=== PATIENT | female | born 1970 | race Caucasian/White ===

== ENCOUNTER 2016-06-30 10:29 | Emergency (ER) | payer MEDICAID ==
[~2016-06-30] VITALS: Wt 55.0 kg
[2016-06-30] MEDS ORDERED: PEN500 PO (11:40)
[2016-06-30] MEDS ORDERED: IBUP-1542 PO (11:40)
--- NOTE | 2016-06-30 15:04 | ERD ---
ER Documentation Chief Complaint Date/Time DATE: 06/30/16 TIME: 15:03 Chief Complaint RIGHT SIDE LOWER FACE SWELLING FOR 2 DAYS. NO FEVERS. NO DRAINAGE HPI Patient is a 46-year-old female with hepatitis C who presents with right-sided facial swelling. She has had swelling for the past few days. It started with dental pain and then the face started swelling. She has recently been in [facility]. She has had no treatment as of yet. ROS All systems reviewed and are negative except as per history of present illness. Medications Home Meds Active Scripts Ibuprofen* (Motrin*) 600 Mg Tab, 600 MG PO Q6H Y for PAIN AND OR ELEVATED TEMP, #30 TAB Prov:LEXIE RESENDEZ MD 06/30/16 Penicillin V Potassium* (Penicillin V K*) 500 Mg Tab, 500 MG PO QID for 7 Days, TAB Prov:LEXIE RESENDEZ MD 06/30/16 PMhx/Soc Medical and Surgical Hx: pt denies Medical Hx, pt denies Surgical Hx Hx Alcohol Use: Yes Hx Substance Use: No Hx Tobacco Use: No Smoking Status: Never smoker FmHx Family History: No diabetes Physical Exam Vitals Vital Signs Date Time Temp Pulse Resp B/P Pulse Ox O2 Delivery O2 Flow Rate FiO2 06/30/16 10:31 97.4 94 20 104/81 100 Physical Exam Const: No acute distress Head: Atraumatic Eyes: Normal Conjunctiva ENT: Poor dentition diffusely Neck: Full range of motion..~ No meningismus. Resp: Clear to auscultation bilaterally Cardio: Regular rate and rhythm, no murmurs Abd: Soft, non tender, non distended. Normal bowel sounds Skin: Facial swelling over the right mandible, no fluctuance Back: No midline or flank tenderness Ext: No cyanosis, or edema Neur: Awake and alert Psych: Normal Mood and Affect Procedures/MDM Smoking Cessation Therapy: Pt. was lectured for greater than 3 minutes on the health risks of continued smoking and the benefits of cessation. Patient is a 46-year-old female with a smoking and heroin history who presents with right-sided facial swelling. She has poor dentition and I believe this is likely dental abscess with facial swelling. She will be given a prescription for penicillin VK 4 times a day for 1 week. The patient will need to follow-up closely with the [facility] dentist and will likely need tooth extraction. The patient can return for any worsening symptoms. At this point there is no abscess that would need incision and drainage in the face. She can return for any worsening symptoms. I do not believe she requires further workup or admission to the hospital at this time. Departure Diagnosis: Primary Impression: Facial swelling Additional Impression: Dental abscess Condition: Fair Patient Instructions: Dental Abscess W/ Facial Cellulitis Referrals: [facility] ([facility] walk in clinic) Additional Instructions: SPECIALIST: YOU HAVE A MEDICAL CONDITION WHICH REQUIRES YOU TO SEE A SPECIALIST WITHIN THE NEXT 1-2 DAYS. PLEASE FOLLOW UP WITH YOUR PRIMARY PHYSICIAN FOR REFFERAL.IF YOU DO NOT HAVE A PRIMARY CARE PHYSICIAN AND/OR YOU CAN NOT AFFORD TO SEE A PHYSICIAN THE FOLLOWING RESOURCES HAVE BEEN SUPPLIED TO YOU. IT IS YOUR RESPONSIBILITY TO BE SEEN BY THE SPECIALIST LEXIE RESENDEZ MD Jun 30, 2016 15:04
== END 2016-06-30 11:55 | disposition home or self-care (01) ==
LOC: FTE 10:29
DX: R60.0 Localized edema (principal); K04.7 Periapical abscess without sinus
CPT/HCPCS: 99283

== ENCOUNTER 2016-12-30 18:01 | Emergency (ER) | payer MEDICAID ==
[~2016-12-30] VITALS: Ht 154.9 cm; Wt 51.0 kg
[~2016-12-30 18:01] MED LIST: IBUP-1542 PO; PEN500 PO
[2016-12-30 18:51] VITALS: Ht 154.9 cm; Wt 51.0 kg
== END 2016-12-30 21:50 | disposition left against medical advice (07) ==
LOC: E/R 18:01
DX: Z53.21 Procedure and treatment not carried out due to patient leaving prior to being seen by health care provider (principal)

== ENCOUNTER 2016-12-30 22:11 | Inpatient (IN) | payer MEDICAID ==
[~2016-12-30] VITALS: Ht 154.9 cm; Wt 51.0 kg
[2016-12-30] MEDS ORDERED: SOD CHLORIDE 0.9% 1,000 ML IV STA (22:57)
[2016-12-30] MEDS ORDERED: PIPER-TAZO 3.375 GM IV (PMX) 100 ML IVPB STA (22:57)
[2016-12-30] MEDS ORDERED: VANCOMYCIN 1 GM (PMX) 250 ML IVPB SCH (23:00)
[2016-12-31] MEDS ORDERED: CEFTRIAXONE 2 GM INJ IM ONE
[2016-12-31] MEDS ORDERED: LIDOCAINE 1% (MPF) 5 ML VIAL SC ONE
--- NOTE | 2016-12-31 00:22 | RADRPT ---
PROCEDURE: XR Chest. CLINICAL INDICATION: Chest pain. Possible foreign body TECHNIQUE: Portable AP view of the chest was obtained. COMPARISON: None. FINDINGS: The cardiomediastinal silhouette is within normal limits. The lungs are clear. There is no evidenc e for pleural effusion, pneumothorax or pulmonary vascular congestion. The osseous structures are i ntact with no evidence for acute abnormality. No radiopaque foreign bodies evident. RPTAT:HJJR IMPRESSION: No evidence for acute intrathoracic pathology, no radiopaque foreign body is visible. Physician Tushar Date Time Electronically viewed and signed by Physician Tushar on 12/31/2016 00:21 JR/
--- NOTE | 2016-12-31 00:24 | RADRPT ---
PROCEDURE: Left humerus x-ray CLINICAL INDICATION: Pain. Concern for foreign body TECHNIQUE: AP and lateral views of the humerus were obtained. COMPARISON: None FINDINGS: There is normal mineralization. No acute fracture or dislocation is seen. There is diffuse soft tissue swelling. The visualized joints are normal. Lateral projection demonstrates a thin linear metallic type density projecting in the region of the anterior forearm the finding approximately 11 mm in length and unable to exclude a superficial radio paque foreign body. RPTAT:HJJR IMPRESSION: 1. Soft tissue swelling without acute osseous abnormality of the left humerus. 2. On the lateral view only is a thin linear superficial metallic needle - like finding unable to ex clude a foreign body of 11 mm projecting in the anterior soft tissues of the left forearm. Physician Tushar Date Time Electronically viewed and signed by Physician Tushar on 12/31/2016 00:24 JR/
[2016-12-31 01:30] LABS: WHITE BLOOD COUNT 10.4 10^3/ul (4.8-10.8)
[2016-12-31 01:31] LABS: BASOPHILS % 0.4 % (0.0-2.0); EOSINOPHILS # 0.1 10^3/ul (0.0-0.5); EOSINOPHILS % 0.7 % (0.0-7.0); HEMATOCRIT 40.3 % (37.0-47.0); HEMOGLOBIN 12.8 g/dl (12.0-16.0); LYMPHOCYTES # 2.9 10^3/ul (0.8-2.9); LYMPHOCYTES % 27.7 % (15.0-51.0); MEAN CORPUSCULAR HEMOGLOBIN 24.8 pg (29.0-33.0); MEAN CORPUSCULAR HGB CONC 31.8 g/dl (32.0-37.0); MEAN CORPUSCULAR VOLUME 78.1 fl (82.0-101.0); MEAN PLATELET VOLUME 10.6 fl (7.4-10.4); MONOCYTE # 0.8 10^3/ul (0.3-0.9); MONOCYTES % 8.1 % (0.0-11.0); NEUTROPHILS % 62.9 % (39.0-77.0); PLATELET COUNT 292 10^3/UL (140-415); RED BLOOD COUNT 5.16 10^6/ul (4.20-5.40); RED CELL DISTRIBUTION WIDTH 15.2 % (11.5-14.5)
[2016-12-31 01:52] LABS: INR 0.99; PROTIME 13.1 Sec (12.2-14.2)
[2016-12-31 01:54] LABS: ALBUMIN 3.6 g/dl (3.3-4.9); ALBUMIN/GLOBULIN RATIO 0.85; BILIRUBIN,INDIRECT 0.2 mg/dl (0-1.1); BILIRUBIN,TOTAL 0.2 mg/dl (0.2-1.3); CALCIUM 8.7 mg/dl (8.4-10.2); CREATININE 0.8 mg/dl (0.44-1.00); TOTAL PROTEIN 7.8 g/dl (6.1-8.1)
[2016-12-31 01:55] VITALS: TEMP 98.2
--- NOTE | 2016-12-31 02:25 | ERA ---
ER Documentation Chief Complaint Date/Time DATE: 12/31/16 TIME: 02:16 Chief Complaint left upper arm abscess R/T drug needle use HPI 46-year-old woman with a history of methamphetamine and heroin abuse brought in by EMS for recent left upper extremity swelling. She admits to swelling to the left arm 2-3 days and admits to recent heroin injection into the left upper extremity. Patient denies paresis or paresthesias, no chest pain or shortness of breath, no fevers or chills, no vomiting or diarrhea. ROS All systems reviewed and are negative except as per history of present illness. Medications Home Meds Active Scripts Ibuprofen* (Motrin*) 600 Mg Tab, 600 MG PO Q6H Y for PAIN AND OR ELEVATED TEMP, #30 TAB Prov:LEXIE RESENDEZ MD 06/30/16 Penicillin V Potassium* (Penicillin V K*) 500 Mg Tab, 500 MG PO QID for 7 Days, TAB Prov:LEXIE RESENDEZ MD 06/30/16 Allergies Allergies: Coded Allergies: No Known Allergy (Unverified , 12/30/16) PMhx/Soc Methamphetamine and heroin abuse. History of Surgery: Yes (appendectomy) Anesthesia Reaction: No Hx Neurological Disorder: Yes (seizure) Hx Respiratory Disorders: No Hx Cardiac Disorders: No Hx Psychiatric Problems: Yes (heroin abuse) Hx Miscellaneous Medical Probl: No Hx Alcohol Use: No (denies) Hx Substance Use: Yes (heroine last used 12/30/16 morning) Hx Tobacco Use: Yes Smoking Status: Current every day smoker FmHx Family History: No diabetes Physical Exam Vitals Vital Signs Date Time Temp Pulse Resp B/P Pulse Ox O2 Delivery O2 Flow Rate FiO2 12/31/16 01:55 98.2 89 16 97/54 98 Room Air 12/30/16 22:19 98.9 110 20 110/70 98 Physical Exam GENERAL: Well-developed, well-nourished, well-hydrated, in no apparent distress , looks nontoxic in appearance, afebrile HEENT: Moist mucous membranes, pink conjunctiva, no cervical spine tenderness or step-off deformities, no goiter, no jaundice or icterus, extraocular movements intact without pain. No submandibular induration, and no pharyngeal erythema NEURO: Alert and oriented 3, cranial nerves II through XII intact bilaterally, pupils equal round reactive to light, no focal deficits or facial asymmetry, sensation intact distally Strength 5/5 in upper and lower extremities bilaterally CARDIAC: Regular rate and rhythm, no murmurs rubs or gallops LUNGS: Clear bilaterally no wheezing crackles or stridor ABDOMEN: Soft nontender, no guarding, no rigidity, no rebound, no psoas sign no obturator sign. Normoactive bowel sounds SKIN: Large zone of tender erythema and induration to the left upper extremity with superficial pustules consistent with chronic skin injection secondary to heroin abuse. No purulent discharge noted EXTREMITIES: No clubbing cyanosis or edema, calves are bilaterally symmetrical, no Homans sign, no popliteal cord sign. Distal pulses equal and bilateral PSYCH: Normal affect without agitation or irritability Result Diagram: 12/31/16 0010 12/31/16 0010 Results 24 hrs Laboratory Tests Test 12/31/16 00:10 White Blood Count 10.410^3/ul Red Blood Count 5.1610^6/ul Hemoglobin 12.8g/dl Hematocrit 40.3% Mean Corpuscular Volume 78.1fl Mean Corpuscular Hemoglobin 24.8pg Mean Corpuscular Hemoglobin Concent 31.8g/dl Red Cell Distribution Width 15.2% Platelet Count 42863^3/UL Mean Platelet Volume 10.6fl Neutrophils % 62.9% Lymphocytes % 27.7% Monocytes % 8.1% Eosinophils % 0.7% Basophils % 0.4% Nucleated Red Blood Cells % 0.0/100WBC Neutrophils # (Manual) 710^3/ul Lymphocytes # 2.910^3/ul Monocytes # 0.810^3/ul Eosinophils # 0.110^3/ul Basophils # 0.010^3/ul Nucleated Red Blood Cells # 0.010^3/ul Prothrombin Time 13.1Sec Prothrombin Time Ratio 1.0 INR International Normalized Ratio 0.99 Sodium Level 136mmol/L Potassium Level 4.0mmol/L Chloride Level 95mmol/L Carbon Dioxide Level 26mmol/L Anion Gap 19 Blood Urea Nitrogen 13mg/dl Creatinine 0.80mg/dl Glucose Level 86mg/dl Calcium Level 8.7mg/dl Total Bilirubin 0.2mg/dl Direct Bilirubin 0.00mg/dl Indirect Bilirubin 0.2mg/dl Aspartate Amino Transf (AST/SGOT) 53IU/L Alanine Aminotransferase (ALT/SGPT) 60IU/L Alkaline Phosphatase 107IU/L Total Protein 7.8g/dl Albumin 3.6g/dl Globulin 4.20g/dl Albumin/Globulin Ratio 0.85 Lipase 18U/L Current Medications Medications (Trade) Dose Ordered Sig/Holly Route PRN Reason Start Time Stop Time Status Last Admin Dose Admin Sodium Chloride 1,000 ml @ 1,000 mls/hr Q1H STAT IV 12/30/16 22:57 12/30/16 23:56 DC 12/30/16 23:24 Piperacillin Sod/ Tazobactam Sod 100 ml @ 200 mls/hr ONCE STAT IVPB 12/30/16 22:57 12/30/16 23:26 DC 12/30/16 23:24 Vancomycin HCl (Vancocin) 250 ml @ 125 mls/hr ONCE IVPB 12/30/16 23:00 12/31/16 00:59 DC 12/30/16 23:25 Ceftriaxone Sodium (Rocephin) 2 gm ONCE ONCE IM 12/31/16 00:00 12/31/16 00:08 DC Lidocaine (Xylocaine 1% (Mpf)) 5 ml ONCE ONCE SC 12/31/16 00:00 12/31/16 00:08 DC Procedures/MDM IV line was established patient was placed on quality assurance monitor rhythm strip revealed a sinus rhythm at about 80 bpm with upright P and T waves. Patient was afebrile. IV line was established I administered Pipracil and tazobactam 3.375 g IV and vancomycin 1 g IV. 1 L normal saline IV 1. Three-view x-ray of the left humerus performed, read by me there is no acute fracture or dislocation, positive soft tissue air and a needle in the left upper lateral arm consistent with retained foreign body. Chest X-ray 1V Interpreted by me: Soft Tissue: No acute abnormalities Bones: No acute abnormalities Mediastinum/Cardiac Silhouette/Lungs: No acute abnormalities CBC and electrolytes are normal, liver function tests are normal. Departure Diagnosis: Primary Impression: Left arm cellulitis Additional Impressions: Abscess Retained foreign body Heroin abuse Condition: MELY Castro MD Dec 31, 2016 02:24
[2016-12-31 02:45] LABS: ADD UMIC YES; UR ASCORBIC ACID NEGATIVE (NEGATIVE); UR BILIRUBIN (Dip) NEGATIVE (NEGATIVE); UR BLOOD (Dip) 2+ mg/dL (NEGATIVE); UR CLARITY SLIGHTLY CLOUDY (CLEAR); UR COLOR AMBER (YELLOW); UR GLUCOSE (Dip) 3+ mg/dL (NEGATIVE); UR KETONES (Dip) NEGATIVE (NEGATIVE); UR LEUKOCYTE ESTERASE (Dip) NEGATIVE Leu/ul (NEGATIVE); UR MUCUS MANY /HPF (NONE SEEN); UR NITRITE (Dip) POSITIVE (NEGATIVE); UR RBC 5 /HPF (0-5); UR SPECIFIC GRAVITY (Dip) 1.027 (1.003-1.030); UR SQUAMOUS EPITHELIAL CELL FEW /HPF (FEW); UR TOTAL PROTEIN (Dip) 1+ mg/dl (NEGATIVE); UR UROBILINOGEN (Dip) NEGATIVE (NEGATIVE)
[2016-12-31] MEDS ORDERED: morphine 2 MG INJ IV PRN (04:00)
[2016-12-31] MEDS ORDERED: LORAZEPAM 2 MG INJ IV PRN ×2 (04:00)
[2016-12-31] MEDS ORDERED: SOD CHLORIDE 0.9% 500 ML IV ONE (04:00)
[2016-12-31] MEDS ORDERED: ONDANSETRON 4 MG INJ IV PRN (04:00)
[2016-12-31] MEDS ORDERED: ACETAMINOPHEN 325 MG TAB PO PRN (04:00)
[2016-12-31] MEDS ORDERED: NACL 0.9% 3 ML SYG IV SCH (04:00)
[2016-12-31] MEDS ORDERED: VANCOMYCIN IV PER PHARMACY XX SCH (04:00)
[2016-12-31 04:33] VITALS: Ht 154.9 cm; Wt 51.0 kg
--- NOTE | 2016-12-31 06:44 | HP ---
Date/Time of Note Date/Time of Note DATE: 12/31/16 TIME: 06:26 Assessment/Plan VTE Prophylaxis VTE Prophylaxis Intervention: heparin Lines/Catheters IV [facility]from [facility] Saline Lock Assessment/Plan Assessment/Plan 1. Left upper arm abscess, secondary to IV drug use -will order CT scan for evaluation of an abscess and further evaluation of the metallic needle-like finding that was noted on the x-ray. -Surgical consult will be placed. -Broad-spectrum antibiotic and pain management -We will attempt to send culture from one of the vesicles or from the surrounding area -ID consult 2. Foreign body in the left arm -See #1 3. IV drug abuse -Case management/social work to provide information about rehab/detox HPI/ROS Admit Date/Time Admit Date/Time Dec 31, 2016 at 01:16 Hx of Present Illness This is a 46-year-old female with a history of IV heroin abuse and seizure related to detox who presented to the emergency department complaining of left upper arm swelling and pain. She said that she has been injecting heroin in that area and the starting 2 days ago she started noticing swelling and pain which has been progressively getting worse. During my questioning, patient was very sleepy requiring frequent awakening. Last heroin use was yesterday. She denied any other complaints. I believe I have noted some swelling and a fluid- filled vesicle in her right forearm but patient was not willing for examination because she wanted to sleep at that time. When she presented to the ER, she was tachycardic with a heart rate of 110 otherwise vitals were stable. Labs shows slightly elevated AST of 53 otherwise CBC and CMP are within acceptable range. Left humerus x-ray shows soft tissue swelling without acute osseous abnormality of the left humerus and on the lateral view only is a thin linear superficial metallic needle - like finding unable to exclude a foreign body of 11 mm projecting in the anterior soft tissues of the left forearm. X-ray with no acute findings. . PMH/Family/Social Social History Smoking Status: Current some day smoker Exam/Review of Systems Vital Signs Vitals Vital Signs Date Time Temp Pulse Resp B/P Pulse Ox O2 Delivery O2 Flow Rate FiO2 12/31/16 01:55 98.2 89 16 97/54 98 Room Air Intake and Output 12/30/16 12/30/16 12/31/16 15:00 23:00 07:00 Intake Total 1350 ml Balance 1350 ml Exam Constitutional: other (Sleepy but arousable. No acute distress) Head: atraumatic, normocephalic Eyes: EOMI, PERRL Respiratory: clear to auscultation, normal air movement Cardiovascular: nl pulses, regular rate and rhythm Gastrointestinal: non-tender, soft Extremities: other (Left upper arm induration with overlying to moderate sized fluid-filled vesicles. There appears to be some swelling with a vesicle in the right forearm but patient was not willing for examination because she wanted to sleep at that time) Labs Result Diagram: 12/31/16 0010 12/31/16 0010 Medications Medications Current Medications Ondansetron HCl (Zofran Inj) 4 mg Q6H PRN IV NAUSEA AND/OR VOMITING; Start at 04:00 Acetaminophen (Tylenol Tab) 650 mg Q6H PRN PO PAIN LEVEL 1-3 OR FEVER; Start at 04:00 Morphine Sulfate (morphine) 2 mg Q4H PRN IV SEVERE PAIN LEVEL 7-10; Start 12/31 at 04:00 Heparin Sodium (Porcine) 5000 unit 5,000 unit Q12 SC ; Start 12/31/16 at 09:00 Cefepime HCl (Maxipime 1gm/50 ml (Pmx)) 50 ml @ 100 mls/hr Q12 IVPB ; Start at 09:00 Lorazepam (Ativan) 2 mg Q1H PRN IV SEIZURE; Start 12/31/16 at 04:00 Lorazepam 1 mg 1 mg Q6H PRN IV ANXIETY; Start 12/31/16 at 04:00 Vancomycin HCl (Vancocin) 100 ml @ 100 mls/hr Q12H IVPB ; Start 12/31/16 at 11: 00 LAURO DIANA MD Dec 31, 2016 06:40
[2016-12-31 08:01] VITALS: BP 124/57; RESP 18
[2016-12-31] MEDS: HEPARIN 5,000 UNIT/0.5 ML VIAL SC SCH ×2 (08:35→21:25)
[2016-12-31] MEDS: CEFEPIME 1GM/50 ML (PMX) 50 ML IVPB SCH ×2 (08:35→21:24)
[2016-12-31] MEDS ORDERED: VANCOMYCIN 500MG/NS (PMX) 100 ML IVPB SCH (11:00)
--- NOTE | 2016-12-31 12:21 | CONS ---
Date/Time of Note Date/Time of Note DATE: 12/31/16 TIME: 12:20 Assessment/Plan Assessment/Plan Additional Assessment/Plan [facility] INPATIENT CONSULTATION NOTE DATE OF SERVICE: 12/31/2016 PLACE OF SERVICE: [facility], second floor [facility] ASSESSMENT AND PLAN: A very-pleasant 46-year-old lady with comorbidity of significant intravenous drug abuse, presenting with left upper arm cellulitis with question of possible abscess. There is also retained needle near the head of the humerus. We need further workup in the form of either ultrasound or CT scan (or both) of the left upper arm which is currently pending to see if there are any indications for surgical intervention. Certainly, the patient needs to stay in house and get treated with intravenous antimicrobials until her arm swelling has improved. I see no evidence for necrotizing fasciitis, but will further assess with above imaging. Patient is also fairly lethargic (? Recent Ativan), but her vital signs and her laboratory values are fairly normal and for this reason I do not suspect systemic sepsis or shock. I tried to explain the above to the patient but I do not believe that she was comprehending the conversation or perhaps she was just not interested in communicating. Patient did not have any questions. Also communicated with the team. With above assessment, I've recommended the followin. Continue with scheduled images of the left upper extremity. We may need further imaging pending the results. 2. Marked the area of erythema with a marker 3. Continue broad-spectrum intravenous antimicrobials 4. Keep in-house 5. Labs in a.m. 6. I agree with and recommend ID consultation Thank you very much for having me involved in the care of this very pleasant patient and wonderful family. If you have any questions, please feel free to contact me at [phone]. Nature of presenting problem: Moderate to high severity Please note that, given the multiple number of diagnoses or management options, the moderate amount and/or complexity of data needed to be reviewed, and moderate to high risk of complications and/or morbidity or mortality, this qualifies as moderate complexity type of decision-making. Disclaimer: Inadvertent spelling and grammatical errors are likely due to EHR/ dictation software use and do not reflect on the quality of delivered patient care. Also, please note that the electronic time recorded on this node does not necessarily reflect the actual time of the visit. Updated clinical summary: A very-pleasant 46-year-old lady with comorbidity of significant intravenous drug abuse, admitted through the emergency department at [facility] on 12/31/2016 with left upper arm cellulitis with question of possible abscess. There was also retained needle near the head of the humerus. Comorbidities: 1. Intravenous drug use (methamphetamine and heroin) 2. Appendectomy 3. 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 Every day smoker 5. Foreign body in the left arm near head of humerus CONSULTATION REQUESTED BY: Lupillo Flaherty MD HISTORY OF PRESENT ILLNESS: The patient is a very pleasant 46-year-old lady with above-mentioned comorbidities whom we were kindly asked to consult regarding management of left upper extremity swelling. Patient was brought into the emergency department by EMS with 2 day history of worsening left upper arm swelling and pain. She did report injecting heroin in the area and noticed the swelling approximately 2 days ago. Patient was not very communicative during my discussions with her and for this reason it was somewhat difficult to get detailed history. But the patient did not seem to complain of inability to move her hand or having numbness in her fingers. She did not tell me if she had had prior episodes of the same issue in the past. Her workup in the emergency department showed a heart rate of 110 and fairly unremarkable laboratory values. X-ray of the left humerus showed soft tissue swelling without acute osseous abnormality of the left humerus and on the lateral view, there was a thin linear superficial metallic needlelike object which was thought to be likely a broken needle. CT scan was pending at the time of my discussions with the patient. No family present during my discussions with the patient. ALLERGIES: NO KNOWN DRUG ALLERGIES MEDICATIONS Documented in the electronic records and reviewed by me. Please see the electronic records for details, as well as details for inpatient medications which were also reviewed by me. SOCIAL HISTORY: + Tob;? ETOH; + IVDU (methamphetamines and heroin) FAMILY HISTORY: There are no significant medical, surgical or oncologic issues in the family as reported by the patient or reflected in the chart. REVIEW OF SYSTEMS: Other than mentioned above, there were no other pertinent positives or pertinent negatives in an otherwise complete 14 point review of systems. PHYSICAL EXAMINATION GENERAL: The patient appears to be a very pleasant lady of descent lying in bed, appearing stated age, and otherwise in no acute distress. BMI: 21.2. Patient was resting comfortably and answered with 1 word sentences and not to all questions. Somewhat disengaged from the interviewer. VITAL SIGNS: AVSS (please also see auto important data if available as well as the electronic records) HEENT: Normocephalic and atraumatic. Extraocular muscles and hearing are grossly intact bilaterally and symmetrically. Sclerae are nonicteric. Oral cavity is clear; oral mucosa appear to be pink and moist. Dentition: fair. NECK: Supple. There is no lymphadenopathy or JVD. There is no submental, submandibular or supraclavicular lymphadenopathy. CHEST: Rises symmetrically with each breath; patient is breathing comfortably. There are no audible wheezes, rales or rhonchi on the gross exam. HEART: Pulse is regular and palpable on the right wrist. Capillary refill is normal. Carotid pulses are palpable bilaterally and symmetrically in the neck. EXTREMITIES: Left upper arm showed swelling of the arm with at least 3 or 4 raised skin blisters which were clustered in the middle of the arm area laterally and associated with mild erythema of the skin but no discharge from the areas. The arm was minimally tender to palpation. Compartments did not feel tight. Patient was able to move her left hand and arm without noticeable difficulty. There did not seem to be any significant numbness in the left hand. Pulses were palpable on the radial artery. Lower extremities contain no pitting edema around the ankles bilaterally and symmetrically. ABDOMEN: Abdomen is soft, nontender and nondistended. No evidence of ascites, organomegaly, caput medusae, engorged subcutaneous veins, or other abnormalities. There are no peritoneal signs or guarding. SKIN: Appears to be pink and feels warm to touch. NEUROLOGIC: Sleeping with her eyes closed and responding intermittently to voice command. Did not seem engaged with the interviewer and appear to follow simple commands appropriately. LABORATORY DATA: See below IMAGING: See electronic chart. Please note that I've personally reviewed all pertinent available images and I agree in general with their overall reported findings. Consultation Date/Type/Reason Admit Date/Time Dec 31, 2016 at 01:16 Social History Smoking Status: Current some day smoker Exam/Review of Systems Vital Signs Vitals Vital Signs Date Time Temp Pulse Resp B/P Pulse Ox O2 Delivery O2 Flow Rate FiO2 12/31/16 08:01 98.9 89 18 124/57 97 8/20/17 01:55 Room Air Intake and Output 12/30/16 12/30/16 12/31/16 15:00 23:00 07:00 Intake Total 2350 ml Balance 2350 ml Results Result Diagram: 12/31/16 0010 12/31/16 0010 Results 24 hrs Laboratory Tests Test 12/30/16 23:15 12/31/16 00:10 Urine Color NATHANIEL Urine Clarity SLIGHTLY CLOUDY A Urine pH 5.0 Urine Specific [place] 1.027 Urine Ketones NEGATIVE Urine Nitrite POSITIVE A Urine Bilirubin NEGATIVE Urine Urobilinogen NEGATIVE Urine Leukocyte Esterase NEGATIVE Urine Microscopic RBC 5 Urine Microscopic WBC 5 Urine Squamous Epithelial Cells FEW Urine Calcium Oxalate Crystals MANY A Urine Mucus MANY A Urine Hemoglobin 2+ H Urine Glucose 3+ H Urine Total Protein 1+ H White Blood Count 10.4 Red Blood Count 5.16 Hemoglobin 12.8 Hematocrit 40.3 Mean Corpuscular Volume 78.1 L Mean Corpuscular Hemoglobin 24.8 L Mean Corpuscular Hemoglobin Concent 31.8 L Red Cell Distribution Width 15.2 H Platelet Count 292 Mean Platelet Volume 10.6 H Neutrophils % 62.9 Lymphocytes % 27.7 Monocytes % 8.1 Eosinophils % 0.7 Basophils % 0.4 Nucleated Red Blood Cells % 0.0 Neutrophils # (Manual) 7 Lymphocytes # 2.9 Monocytes # 0.8 Eosinophils # 0.1 Basophils # 0.0 Nucleated Red Blood Cells # 0.0 Prothrombin Time 13.1 Prothrombin Time Ratio 1.0 INR International Normalized Ratio 0.99 Sodium Level 136 Potassium Level 4.0 Chloride Level 95 L Carbon Dioxide Level 26 Anion Gap 19 H Blood Urea Nitrogen 13 Creatinine 0.80 Glucose Level 86 Calcium Level 8.7 Total Bilirubin 0.2 Direct Bilirubin 0.00 Indirect Bilirubin 0.2 Aspartate Amino Transf (AST/SGOT) 53 H Alanine Aminotransferase (ALT/SGPT) 60 Alkaline Phosphatase 107 Total Protein 7.8 Albumin 3.6 Globulin 4.20 H Albumin/Globulin Ratio 0.85 Lipase 18 L Medications Medications Current Medications Ondansetron HCl (Zofran Inj) 4 mg Q6H PRN IV NAUSEA AND/OR VOMITING; Start at 04:00 Acetaminophen (Tylenol Tab) 650 mg Q6H PRN PO PAIN LEVEL 1-3 OR FEVER; Start at 04:00 Morphine Sulfate (morphine) 2 mg Q4H PRN IV SEVERE PAIN LEVEL 7-10; Start 12/31 at 04:00 Heparin Sodium (Porcine) 5000 unit 5,000 unit Q12 SC ; Start 12/31/16 at 09:00 Cefepime HCl (Maxipime 1gm/50 ml (Pmx)) 50 ml @ 100 mls/hr Q12 IVPB Last administered on 12/31/16 08:35; Admin Dose 100 MLS/HR; Start 12/31/16 at 09:00 Lorazepam (Ativan) 2 mg Q1H PRN IV SEIZURE Last administered on 12/31/16 08:09 ; Admin Dose 2 MG; Start 12/31/16 at 04:00 Lorazepam 1 mg 1 mg Q6H PRN IV ANXIETY; Start 12/31/16 at 04:00 Vancomycin HCl/ Sodium Chloride (Vancocin/NS) 150 ml @ 75 mls/hr Q12H IVPB ; Start 12/31/16 at 11:00 Miscellaneous Information (*Rx Drug Level Order Reminder*) VANCOMYCIN TROUGH AT 1000 ONCE ONCE XX ; Start 01/01/17 at 10:00; Stop 01/01/17 at 10:01 Nicotine (Nicoderm 21 Mg/ 24hr) 1 patch DAILY TRANSDERM ; Start 01/01/17 at 09: 00 SILVIA MAE M.D. Dec 31, 2016 12:21
[2016-12-31] MEDS: VANCOMYCIN 750 MG in SOD CHLORIDE 0.9% 150 ML IVPB SCH ×2 (12:41→23:29)
[2016-12-31 14:19] LABS: BASOPHILS % 0.3 % (0.0-2.0); EOSINOPHILS # 0.1 10^3/ul (0.0-0.5); EOSINOPHILS % 0.8 % (0.0-7.0); HEMATOCRIT 37.9 % (37.0-47.0); HEMOGLOBIN 12.5 g/dl (12.0-16.0); LYMPHOCYTES # 2.6 10^3/ul (0.8-2.9); LYMPHOCYTES % 25.8 % (15.0-51.0); MEAN CORPUSCULAR HEMOGLOBIN 25.7 pg (29.0-33.0); MONOCYTE # 0.8 10^3/ul (0.3-0.9); MONOCYTES % 7.9 % (0.0-11.0); NEUTROPHILS % 64.9 % (39.0-77.0); PLATELET COUNT 309 10^3/UL (140-415); RED BLOOD COUNT 4.86 10^6/ul (4.20-5.40); RED CELL DISTRIBUTION WIDTH 15.1 % (11.5-14.5); WHITE BLOOD COUNT 10.2 10^3/ul (4.8-10.8)
[2016-12-31 14:35] VITALS: BP 124/66; RESP 20
[2016-12-31 14:36] LABS: ALBUMIN 2.9 g/dl (3.3-4.9); ALBUMIN/GLOBULIN RATIO 0.8; CALCIUM 8.2 mg/dl (8.4-10.2); CREATININE 0.64 mg/dl (0.44-1.00); MAGNESIUM 1.9 mg/dl (1.7-2.5); TOTAL PROTEIN 6.5 g/dl (6.1-8.1)
[2016-12-31 19:40] VITALS: BP 134/82; RESP 20
[2016-12-31 20:00] VITALS: BP 134/82; PULSE 99; RESP 20
[2017-01-01 02:02] VITALS: BP 129/68; RESP 18
[2017-01-01 08:00] VITALS: BP 146/70; RESP 20
[2017-01-01] MEDS ORDERED: NICOTINE (21 MG/24 HR) PATCH TRANSDERM SCH (09:00)
[2017-01-01] MEDS: CEFEPIME 1GM/50 ML (PMX) 50 ML IVPB SCH (09:00)
[2017-01-01] MEDS: HEPARIN 5,000 UNIT/0.5 ML VIAL SC SCH (09:11)
[2017-01-01 10:36] LABS: BASOPHILS % 0.4 % (0.0-2.0); EOSINOPHILS # 0.1 10^3/ul (0.0-0.5); EOSINOPHILS % 0.9 % (0.0-7.0); HEMOGLOBIN 13.1 g/dl (12.0-16.0); LYMPHOCYTES # 2.3 10^3/ul (0.8-2.9); LYMPHOCYTES % 29.7 % (15.0-51.0); MEAN CORPUSCULAR HEMOGLOBIN 25.5 pg (29.0-33.0); MEAN CORPUSCULAR HGB CONC 32.8 g/dl (32.0-37.0); MEAN PLATELET VOLUME 10.2 fl (7.4-10.4); MONOCYTE # 0.6 10^3/ul (0.3-0.9); MONOCYTES % 7.1 % (0.0-11.0); NEUTROPHILS % 61.4 % (39.0-77.0); PLATELET COUNT 340 10^3/UL (140-415); RED BLOOD COUNT 5.13 10^6/ul (4.20-5.40); RED CELL DISTRIBUTION WIDTH 14.9 % (11.5-14.5); WHITE BLOOD COUNT 7.8 10^3/ul (4.8-10.8)
[2017-01-01] MEDS ORDERED: TRIMETHOPRIM/SULFAMETHOX (DS) TAB PO SCH (11:00)
[2017-01-01] MEDS ORDERED: METHADONE 10 MG TAB PO ONE (11:00)
[2017-01-01 11:01] LABS: CALCIUM 8.7 mg/dl (8.4-10.2); CREATININE 0.6 mg/dl (0.44-1.00); PHOSPHORUS 3.6 mg/dl (2.5-4.9); POTASSIUM 3.7 mmol/L (3.5-5.1)
[2017-01-01] MEDS ORDERED: IBUPROFEN 400 MG TAB PO PRN (11:30)
[2017-01-01 14:24] VITALS: BP 146/70; RESP 16
--- NOTE | 2017-01-01 14:29 | PN ---
Date/Time of Note Date/Time of Note DATE: 01/01/17 TIME: 14:25 Assessment/Plan VTE Prophylaxis VTE Prophylaxis Intervention: LMWH Lines/Catheters IV Catheter Type (from Nrs): Saline Lock Assessment/Plan Chief Complaint/Hosp Course 46 yo female with h/o opiate use disorder IVDU, tobacco use disorder, alcohol use disorder who presents with cellulitis and abscess of LUE in setting of likely foreign body (injection needle) seen in the wound Cellulitis, abscess with foreign body: - Patient refusing IV access to continue IV abx, so will convert to PO abx with bactrim, shoudl be adequate regardless - CT w/o contrast to evaluate foreign body, surgery is following Opiate use d/o: - Methadone as needed for withdrawal Tobacco use d/o: - NRT Discharge following Problems: Subjective 24 Hr Interval Summary Free Text/Dictation Patient quite irritiable Ripped out IV Refused IV access Refused much interview with me, then took her bag into the bathroom Exam/Review of Systems Vital Signs Vitals Vital Signs Date Time Temp Pulse Resp B/P Pulse Ox O2 Delivery O2 Flow Rate FiO2 01/01/17 08:00 98.2 100 20 146/70 99 12/31/16 20:00 Room Air Intake and Output 12/31/16 12/31/16 01/01/17 15:00 23:00 07:00 Intake Total 200 ml 475 ml 550 ml Balance 200 ml 475 ml 550 ml Exam Full exam declined by patient Seemed quite inrritibale She was alert and nontoxic appearing RUE I was only able to get a look at, clearly swollen with some mild erythema surrounding superfical lesions. patient wouldn't allow further exam Results Result Diagram: 01/01/17 1008 01/01/17 1008 Results 24 hrs Laboratory Tests Test 01/01/17 10:08 White Blood Count 7.8 # Red Blood Count 5.13 Hemoglobin 13.1 Hematocrit 40.0 Mean Corpuscular Volume 78.0 L Mean Corpuscular Hemoglobin 25.5 L Mean Corpuscular Hemoglobin Concent 32.8 Red Cell Distribution Width 14.9 H Platelet Count 340 Mean Platelet Volume 10.2 Neutrophils % 61.4 Lymphocytes % 29.7 Monocytes % 7.1 Eosinophils % 0.9 Basophils % 0.4 Nucleated Red Blood Cells % 0.0 Neutrophils # (Manual) 5 Lymphocytes # 2.3 Monocytes # 0.6 Eosinophils # 0.1 Basophils # 0.0 Nucleated Red Blood Cells # 0.0 Sodium Level 138 Potassium Level 3.7 Chloride Level 104 Carbon Dioxide Level 26 Anion Gap 12 Blood Urea Nitrogen 9 Creatinine 0.60 Glucose Level 130 Hemoglobin A1c 5.8 Calcium Level 8.7 Phosphorus Level 3.6 Magnesium Level 2.0 Vancomycin Level Trough < 5.0 L Medications Medications Current Medications Ondansetron HCl (Zofran Inj) 4 mg Q6H PRN IV NAUSEA AND/OR VOMITING; Start at 04:00 Acetaminophen (Tylenol Tab) 650 mg Q6H PRN PO PAIN LEVEL 1-3 OR FEVER; Start at 04:00 Morphine Sulfate (morphine) 2 mg Q4H PRN IV SEVERE PAIN LEVEL 7-10; Start 12/31 at 04:00 Heparin Sodium (Porcine) 5000 unit 5,000 unit Q12 SC Last administered on 09:11; Admin Dose 5,000 UNIT; Start 12/31/16 at 09:00 Cefepime HCl (Maxipime 1gm/50 ml (Pmx)) 50 ml @ 100 mls/hr Q12 IVPB Last administered on 12/31/16 21:24; Admin Dose 100 MLS/HR; Start 12/31/16 at 09:00 ; Status Future Hold Lorazepam (Ativan) 2 mg Q1H PRN IV SEIZURE Last administered on 12/31/16 08:09 ; Admin Dose 2 MG; Start 12/31/16 at 04:00 Lorazepam 1 mg 1 mg Q6H PRN IV ANXIETY; Start 12/31/16 at 04:00 Vancomycin HCl/ Sodium Chloride (Vancocin/NS) 150 ml @ 75 mls/hr Q12H IVPB Last administered on 12/31/16 23:29; Admin Dose 75 MLS/HR; Start 12/31/16 at 11 :00; Status Future Hold Nicotine (Nicoderm 21 Mg/ 24hr) 1 patch DAILY TRANSDERM Last administered on 09:10; Admin Dose 1 PATCH; Start 01/01/17 at 09:00 Trimethoprim/ Sulfamethoxazole (Bactrim (Ds)) 1 tab BID PO Last administered on 01/01/17 11:26; Admin Dose 1 TAB; Start 01/01/17 at 11:00 Ibuprofen (Motrin) 400 mg Q6H PRN PO PAIN OR TEMP ABOVE 38C; Start 01/01/17 at 11:30 ROMMEL TOBIAS MD Jan 01, 2017 14:28
--- NOTE | 2017-01-01 16:37 | CONS ---
Date/Time of Note Date/Time of Note DATE: 01/01/17 TIME: 16:36 Consultation Date/Type/Reason Admit Date/Time Dec 31, 2016 at 01:16 Date of Consultation: Jan 01, 2017 Type of Consultation: ID Reason for Consultation Antibiotic managrment Social History Smoking Status: Current some day smoker Exam/Review of Systems Vital Signs Vitals Vital Signs Date Time Temp Pulse Resp B/P Pulse Ox O2 Delivery O2 Flow Rate FiO2 01/01/17 14:24 98.5 95 16 146/70 95 12/31/16 20:00 Room Air Intake and Output 12/31/16 12/31/16 01/01/17 15:00 23:00 07:00 Intake Total 200 ml 475 ml 550 ml Balance 200 ml 475 ml 550 ml Results Result Diagram: 01/01/17 1008 01/01/17 1008 Results 24 hrs Laboratory Tests Test 01/01/17 10:08 White Blood Count 7.8 # Red Blood Count 5.13 Hemoglobin 13.1 Hematocrit 40.0 Mean Corpuscular Volume 78.0 L Mean Corpuscular Hemoglobin 25.5 L Mean Corpuscular Hemoglobin Concent 32.8 Red Cell Distribution Width 14.9 H Platelet Count 340 Mean Platelet Volume 10.2 Neutrophils % 61.4 Lymphocytes % 29.7 Monocytes % 7.1 Eosinophils % 0.9 Basophils % 0.4 Nucleated Red Blood Cells % 0.0 Neutrophils # (Manual) 5 Lymphocytes # 2.3 Monocytes # 0.6 Eosinophils # 0.1 Basophils # 0.0 Nucleated Red Blood Cells # 0.0 Sodium Level 138 Potassium Level 3.7 Chloride Level 104 Carbon Dioxide Level 26 Anion Gap 12 Blood Urea Nitrogen 9 Creatinine 0.60 Glucose Level 130 Hemoglobin A1c 5.8 Calcium Level 8.7 Phosphorus Level 3.6 Magnesium Level 2.0 Vancomycin Level Trough < 5.0 L Medications Medications Current Medications Ondansetron HCl (Zofran Inj) 4 mg Q6H PRN IV NAUSEA AND/OR VOMITING; Start at 04:00 Acetaminophen (Tylenol Tab) 650 mg Q6H PRN PO PAIN LEVEL 1-3 OR FEVER; Start at 04:00 Morphine Sulfate 2 mg 2 mg Q4H PRN IV SEVERE PAIN LEVEL 7-10; Start 12/31/16 at 04:00 Cefepime HCl (Maxipime 1gm/50 ml (Pmx)) 50 ml @ 100 mls/hr Q12 IVPB Last administered on 12/31/16 21:24; Admin Dose 100 MLS/HR; Start 12/31/16 at 09:00 ; Status Future Hold Lorazepam (Ativan) 2 mg Q1H PRN IV SEIZURE Last administered on 12/31/16 08:09 ; Admin Dose 2 MG; Start 12/31/16 at 04:00 Lorazepam 1 mg 1 mg Q6H PRN IV ANXIETY; Start 12/31/16 at 04:00 Vancomycin HCl/ Sodium Chloride (Vancocin/NS) 150 ml @ 75 mls/hr Q12H IVPB Last administered on 12/31/16 23:29; Admin Dose 75 MLS/HR; Start 12/31/16 at 11 :00; Status Future Hold Nicotine (Nicoderm 21 Mg/ 24hr) 1 patch DAILY TRANSDERM Last administered on 09:10; Admin Dose 1 PATCH; Start 01/01/17 at 09:00 Trimethoprim/ Sulfamethoxazole (Bactrim (Ds)) 1 tab BID PO Last administered on 01/01/17 11:26; Admin Dose 1 TAB; Start 01/01/17 at 11:00 Ibuprofen (Motrin) 400 mg Q6H PRN PO PAIN OR TEMP ABOVE 38C; Start 01/01/17 at 11:30 Methadone HCl (Methadone) 10 mg Q8 PO ; Start 01/01/17 at 22:00 AURELIA VERDE MD Jan 01, 2017 16:37
--- NOTE | 2017-01-01 16:50 | PN ---
Date/Time of Note Date/Time of Note DATE: 01/01/17 TIME: 16:49 Assessment/Plan Lines/Catheters IV Catheter Type (from Nrs): Saline Lock Assessment/Plan Assessment/Plan [facility] Progress Note Date of Service: 01/01/2017 Place of service: [facility] second floor [facility] Today's Assessment & Plan: Overall stable and appears improved with left upper arm cellulitis. Neurologically, the patient is significantly improved. Her left upper arm remains stable and infected. Still awaiting CT findings for further planning. No immediate indication for acute surgical intervention, but the patient may indeed need surgical intervention once the CT findings are reviewed. It may also be possible that the patient may need interventional radiology drainage if indicated. Reviewed this with the patient and answered all questions. No family present in the room during my discussions with the patient. Patient appeared to understand and agreed with the plans. With above assessment, I've recommended the following for today: 1. Noncontrast CT scan of left upper extremity to include the shoulder area 2. Appreciate Dr. Borrero's excellent input regarding infectious disease management 3. Keep in-house on broad-spectrum antimicrobials Thank you very much for having me involved in the care of this very pleasant patient and wonderful family. If you have any questions, please feel free to contact me at [phone]. Nature of presenting problem: Moderate to high severity Please note that, given the multiple number of diagnoses or management options, the moderate amount and/or complexity of data needed to be reviewed, and moderate to high risk of complications and/or morbidity or mortality, this qualifies as moderate complexity type of decision-making. Disclaimer: Inadvertent spelling and grammatical errors are likely due to EHR/ dictation software use and do not reflect on the quality of delivered patient care. Also, please note that the electronic time recorded on this node does not necessarily reflect the actual time of the visit. Updated clinical summary: A very-pleasant 46-year-old lady with comorbidity of significant intravenous drug abuse, admitted through the emergency department at [facility] on 12/31/2016 with left upper arm cellulitis with question of possible abscess. There was also retained needle near the head of the humerus. Comorbidities: 1. Intravenous drug use (methamphetamine and heroin) 2. Appendectomy 3. 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 Every day smoker 5. Foreign body in the left arm near head of humerus Subjective: No major events or complaints; patient much more awake during my conversations with her; no abd pain. Minor left upper arm pain and under control with medications; no n/v/d; no sob or cp; + flatus; + BM and normal; + activity. Patient was able to tell me that there is no numbness in her left hand or fingers and she is able to move her hand and arm without significant difficulty. No major changes from before other than more discomfort in the left upper arm. Objective: Vitals: See below I's & O's: See below Exam: GENERAL: On exam, the patient was lying in bed and appeared to be comfortable and in no acute distress. ABDOMEN: Soft, nontender and nondistended. There are no peritoneal signs or guarding. EXTREMITIES: Left upper arm showed swelling of the arm with at least 3 or 4 raised skin blisters which were clustered in the middle of the arm area laterally and associated with mild erythema of the skin but no discharge from the areas. The arm was minimally tender to palpation. Compartments did not feel tight. Patient was able to move her left hand and arm without noticeable difficulty. There did not seem to be any significant numbness in the left hand. Pulses were palpable on the radial artery. Lower extremities contain no pitting edema around the ankles bilaterally and symmetrically. SKIN: Skin otherwise appears to be pink and feels warm to touch. NEUROLOGIC: Patient is awake, alert, and follows commands appropriately. Labs: See below Exam/Review of Systems Vital Signs Vitals Vital Signs Date Time Temp Pulse Resp B/P Pulse Ox O2 Delivery O2 Flow Rate FiO2 01/01/17 14:24 98.5 95 16 146/70 95 12/31/16 20:00 Room Air Intake and Output 12/31/16 12/31/16 01/01/17 15:00 23:00 07:00 Intake Total 200 ml 475 ml 550 ml Balance 200 ml 475 ml 550 ml Results Result Diagram: 01/01/17 1008 01/01/17 1008 SILVIA MAE M.D. Jan 01, 2017 16:50
[2017-01-01] MEDS ORDERED: HYDROmorphONE 2 MG TAB PO PRN (18:00)
--- NOTE | 2017-01-01 19:42 | RADRPT ---
PROCEDURE: CT LEFT UPPER EXTREMITY. CLINICAL INDICATION: Concern for abscess and foreign body. Pain and swelling. TECHNIQUE: CT scan of the left upper extremity was performed on a multi -slice scanner. No IV con trast was administered. Coronal and sagittal reformatted images were obtained from the axial [facility] e images. The total exam DLP equals 635.79 mGy-cm. The CDTI volume was 9.98 mGy. One or more of the following dose reduction techniques were used: - Automated exposure control. - Adjustment of the mA and/or kV according to patient size . - Use of iterative reconstruction technique. Images were reviewed on a high-resolution PACS workstation. COMPARISON: None. FINDINGS: There is diffuse subcutaneous soft tissue swelling within the arm and within the forearm. Soft tiss ue swelling is greater in the forearm is seen dominantly dorsally and medially at the myofascial sunny ction with the subcutaneous adipose tissue. No focal fluid collection is identified. It would be d ifficult to exclude a focal abscess within the diffuse subcutaneous soft tissue swelling without IV contrast . Consider MRI or ultrasound for further characterization if clinically indicated. No fra ctures seen. No bone destructive changes are seen. There is a radiopaque foreign body versus calci fication adjacent to the acromial process in the shoulder seen on sagittal image number 95 and axial image 417 and coronal images 138 131. The metallic radiopaque foreign body is somewhat linear and could be a needle or p.m. There is possible edema within the adjacent deltoid muscle belly. There i s a second radiopaque foreign body, metallic, within the proximal forearm soft tissues volarly and laterally seen on axial image 215 and sagittal image 151. This is also likely a needle or of pain. A 3rd very superficial metallic foreign body is seen within the radial soft tissues of the distal f orearm and wrist on axial image 169 and sagittal image 120. MRI would be of benefit for further eric racterization of the muscle and clinically indicated. IMPRESSION: 1. Subcutaneous soft tissue swelling about the arm and forearm. No discrete fluid collection to con firm abscess is seen. 2. Radiopaque foreign body, probably a needle or pin is present within the deltoid muscle belly dameon r the acromion at the shoulder level. 3. Second radiopaque somewhat linear foreign body, again possibly in the lower 10 within the latera l volar soft tissues of the proximal forearm. 4. A 3rd radiopaque foreign body within the radial soft tissues of the distal forearm adjacent to t he wrist. RPTAT: XX .Zenon Alvarez MD, Date Time Electronically viewed and signed by .Zenon Alvarez MD, on 01/01/2017 19:41 .T/
[2017-01-01] MEDS ORDERED: METHADONE 10 MG TAB PO SCH (22:00)
--- NOTE | 2017-01-02 03:28 | CONS ---
DATE OF ADMISSION: 12/31/2016 DATE OF CONSULTATION: 01/01/2017 REASON FOR CONSULTATION: Antibiotic management. HISTORY OF PRESENT ILLNESS: Gianna Cedeño is a 46-year-old female with a history of heroin abuse, as well as seizures, who presented to the emergency room with left upper arm swelling and pain. She said that she had been injecting heroin in that area and about 2 days ago she started noticing swelling and pain, which has been progressively getting worse. The patient was very sleepy, requiring frequent awakenings. Last heroin use was yesterday. She denied any other complaints. There may be some fluctuance in the left lateral aspect of her arm, but it is difficult to elucidate. She probably has left upper arm abscess secondary to IV drug abuse. A CT scan of the area was ordered for evaluation. On admission, her white count was 10.4, H and H of 12.8, 40.3, platelet count 292,000. BUN and creatinine 13/0.80, glucose of 86. Her chest x-ray showed no acute infiltrate. Her x-ray of the humerus, on the left, showed soft tissue swelling without acute osseous abnormality of the left humerus. On the lateral view, there is a thin linear superficial metallic needle-like finding, unable to exclude a foreign body of 11 mm projecting into the anterior soft tissue of the left forearm. MICROBIOLOGY: The arm is growing out gram-negative rods, coliforms and Staphylococcus aureus. She received cefepime and vancomycin, and also, trimethoprim sulfa. Currently she is taking vancomycin and cefepime, but that is on hold, because of IV access. She is currently on Bactrim. PAST MEDICAL HISTORY: Operations as outlined. FAMILY HISTORY: Noncontributory. SOCIAL HISTORY: She does not smoke, drink, or abuse drugs. ALLERGIES: NONE TO PENICILLIN, SULFA, OR FOODS. MEDICATION: Per chart. REVIEW OF SYSTEMS: As per HPI. PHYSICAL EXAMINATION: GENERAL: Patient is a well-developed, well-nourished, felon female, who is awake, responsive, no acute distress. VITAL SIGNS: Stable. She is afebrile. SKIN: Without generalized rash. She has left upper arm induration with overlying fluid-filled vesicles. There is swelling in the right arm as well, but the patient is not willing to be examined on the right side, but the left arm has significant induration. HEENT: Within normal limits. NECK: Supple. Lymph nodes nonpalpable. CHEST: Decreased breath sounds at the bases. HEART: Without murmur or gallop. ABDOMEN: Soft, nontender, without organosplenomegaly or masses. EXTREMITIES: Without cyanosis, clubbing, or edema. RECTAL AND GENITAL: Exams deferred. NEUROLOGIC: No focal neurological abnormality. IMPRESSION AND PLAN: The patient currently is an intravenous drug abuser. She should be checked for human immunodeficiency virus. In addition, she should get access for vancomycin and cefepime, as well as a CT scan of the left upper extremity. I will dictate my findings to the hospitalist and to Dr. James Kim. Dictated By: Rodo Borrero MD JD/yobani/lucero /Document#: [id number]
== END 2017-01-01 20:40 | disposition left against medical advice (07) | DRG 603 ==
LOC: E/R 22:11 → PP2 12-31 01:16
PROVIDERS: ADMIT Internal Medicine; ATTEND Internal Medicine
DX: L03.114 Cellulitis of left upper limb (principal); F11.10 Opioid abuse, uncomplicated; L02.414 Cutaneous abscess of left upper limb; F15.90 Other stimulant use, unspecified, uncomplicated; F17.200 Nicotine dependence, unspecified, uncomplicated; Z72.89 Other problems related to lifestyle; S51.842A Puncture wound with foreign body of left forearm, initial encounter; A49.01 Methicillin susceptible Staphylococcus aureus infection, unspecified site
CPT/HCPCS: 36569; 71010; 73060; 73200; 80048; 80053; 80202; 81001; 83036; 83690; 83735; 84100; 85025; 85610; 86703; 87070; 87081; 96365; 96366; 96368; J0692; J1170; J1644; J2060; J2543; J3370; J7030; J7040

== ENCOUNTER 2018-04-10 17:23 | Emergency (ER) | END 2018-04-10 20:47 | disposition home or self-care (01) ==

== ENCOUNTER 2018-09-17 20:52 | Emergency (ER) | payer OTHER ==
[~2018-09-17] VITALS: Wt 53.5 kg
[~2018-09-17 20:52] MED LIST changes: +CEPH-443 PO; +CLIN300C10 PO; -PEN500 PO; +PENI500T PO; +SULF1TAB31 PO
[2018-09-17] MEDS ORDERED: KETOROLAC 60 MG INJ IM STA (23:18)
[2018-09-17] MEDS ORDERED: traMADol 50 MG TAB PO ONE (23:30)
[2018-09-17] MEDS ORDERED: LIDOCAINE 1% (MDV) 20 ML INJ SC ONE (23:30)
[2018-09-18] MEDS ORDERED: ACETAMINOPHEN 500 MG TAB PO STA (02:50)
[2018-09-18] MEDS ORDERED: SULF1TAB31 PO (02:54)
[2018-09-18] MEDS ORDERED: CEPH-443 PO (02:54)
[2018-09-18] MEDS ORDERED: LIDOCAINE 1% (MPF) 5 ML VIAL INFIL ONE (03:00)
[2018-09-18] MEDS ORDERED: TRIMETHOPRIM/SULFAMETHOX (DS) TAB PO ONE (03:00)
[2018-09-18] MEDS ORDERED: CEFTRIAXONE 1 GM INJ IM ONE (03:00)
[2018-09-18] MEDS ORDERED: traMADol 50 MG TAB PO ONE (03:00)
[2018-09-18 03:35] VITALS: PULSE 85; RESP 16
[2018-09-18 04:15] VITALS: BP 105/54
--- NOTE | 2018-09-18 17:24 | ERD ---
ER Documentation Chief Complaint Chief Complaint ABSCESS ON R FOREARM X'S 2 DAYS HPI History of Present Illness: 48-year-old female with past medical history of "mental health issues" coming in today with complaint of an abscess to her right forearm. Patient reports using heroin approximately 7 days ago, and noticed a small abscess beginning to form the following day. Patient reports abscess is worsened over the 7 days and now she is unable to bear the pain due to pressure. At home pharmacological/nonpharmacological treatment for symptoms: Denies Denies social concerns; Denies recent foreign travel ROS All systems reviewed and are negative except as per history of present illness. Medications Home Meds Active Scripts Cephalexin* (Keflex*) 500 Mg Capsule, 500 MG PO Q6 for ABSCESS INFECTION for 10 Days, #40 CAP Prov:JAMIE LU NP 09/18/18 Sulfamethoxazole/Trimethoprim* (Bactrim Ds* Tablet) 1 Each Tablet, 1 TAB PO BID for ABSCESS INFECTION for 10 Days, #14 TAB Prov:JAMIE LU NP 09/18/18 Sulfamethoxazole/Trimethoprim* (Bactrim Ds* Tablet) 1 Each Tablet, 1 TAB PO BID, #14 TAB Prov:ANGELA RODRIGUEZ PA-C 04/10/18 Cephalexin* (Keflex*) 500 Mg Capsule, 500 MG PO QID for 7 Days, CAP Prov:ANGELA RODRIGUEZ PA-C 04/10/18 Ibuprofen* (Motrin*) 600 Mg Tab, 600 MG PO Q6H PRN for PAIN AND OR ELEVATED TEMP, #30 TAB Prov:JAMES MARIN NP 01/12/18 Clindamycin Hcl* (Clindamycin Hcl*) 300 Mg Capsule, 300 MG PO TID for 10 Days, CAP Prov:JAMES MARIN JEWELRY MECHANIC 01/12/18 Ibuprofen* (Motrin*) 600 Mg Tab, 600 MG PO Q6H PRN for PAIN AND OR ELEVATED TEMP, #30 TAB Prov:LEXIE RESENDEZ MD 06/13/17 Cephalexin* (Keflex*) 500 Mg Capsule, 500 MG PO QID for 7 Days, CAP Prov:LEXIE RESENDEZ MD 06/13/17 Sulfamethoxazole/Trimethoprim* (Bactrim Ds* Tablet) 1 Each Tablet, 1 TAB PO BID, #14 TAB Prov:LEXIE RESENDEZ MD 06/13/17 Ibuprofen* (Motrin*) 600 Mg Tab, 600 MG PO Q6H PRN for PAIN AND OR ELEVATED TEMP, #30 TAB Prov:LEXIE RESENDEZ MD 06/30/16 Penicillin V Potassium* (Penicillin V K*) 500 Mg Tab, 500 MG PO QID for 7 Days, TAB Prov:LEXIE RESENDEZ MD 06/30/16 Allergies Allergies: Coded Allergies: No Known Allergy (Unverified , 06/13/17) PMhx/Soc History of Surgery: Yes (APPENDECTOMY) Anesthesia Reaction: No Hx Neurological Disorder: Yes (SEIZURES) Hx Respiratory Disorders: Yes (ASTHMA) Hx Cardiac Disorders: No Hx Psychiatric Problems: Yes (BIPOLAR, SCHIZOPHRENIA ) Hx Miscellaneous Medical Probl: No Hx Alcohol Use: Yes Hx Substance Use: Yes Hx Tobacco Use: Yes Smoking Status: Current every day smoker FmHx Family History: diabetes; No coronary disease Physical Exam Vitals Vital Signs Date Temp Pulse Resp B/P (MAP) Pulse Ox O2 O2 Flow FiO2 Time Delivery Rate 09/18/18 105/54 04:15 (71) 09/18/18 97.8 85 16 89/52 (64) 98 Room Air 03:35 09/17/18 97.8 113 20 139/88 97 20:55 (105) Physical Exam Const: No acute distress Head: Atraumatic Eyes: Normal Conjunctiva ENT: Normal External Ears, Nose and Mouth. Neck: Full range of motion. No meningismus. Resp: Clear to auscultation bilaterally Cardio: Regular rate and rhythm, no murmurs Abd: Soft, non tender, non distended. Normal bowel sounds Skin: No petechiae or rashes; 5 x 6 cm abscess noted to right forearm, positive erythema, positive fluctuance, positive tenderness to palpation, negative streaking, negative surrounding cellulitis Back: No midline or flank tenderness Ext: No cyanosis, or edema Neur: Awake and alert Psych: Normal Mood and Affect Results 24 hrs Laboratory Tests Test 09/17/18 23:54 POC Beta HCG, Qualitative NEGATIVE Current Medications Medications Dose Sig/Holly Start Time Status Last (Trade) Ordered Route PRN Stop Time Admin Dose Reason Admin Lidocaine 20 ml ONCE ONCE 09/17/18 DC (Xylocaine SC 23:30 09/17/18 1% (Mdv) 20 23:31 ml) Tramadol 50 mg ONCE ONCE 09/17/18 DC 09/18/18 HCl PO 23:30 09/17/18 00:04 (Ultram) 23:31 Ketorolac 60 mg ONCE STAT 09/17/18 DC 09/18/18 Tromethamine IM 23:18 09/17/18 00:04 (Toradol) 23:21 Ceftriaxone 1 gm ONCE ONCE 09/18/18 DC 09/18/18 Sodium IM 03:00 09/18/18 03:24 (Rocephin) 03:01 Lidocaine 2.1 ml ONCE ONCE 09/18/18 DC 09/18/18 (Xylocaine INFIL 03:00 09/18/18 03:24 1% (Mpf)) 03:01 Tramadol 50 mg ONCE ONCE 09/18/18 DC 09/18/18 HCl PO 03:00 09/18/18 03:25 (Ultram) 03:01 1,000 mg ONCE STAT 09/18/18 DC 09/18/18 Acetaminophen PO 02:50 09/18/18 03:23 (Tylenol 02:52 Tab) 1 tab ONCE ONCE 09/18/18 DC 09/18/18 Trimethoprim/ PO 03:00 09/18/18 03:24 03:01 Sulfamethoxaz ole (Bactrim (Ds)) Procedures/MDM ED course includes a thorough examination and history. Medications: Ketorolac, tramadol Imaging: -- Labs: Urine Low suspicion for life-threatening medical emergency. Low suspicion for infectious emergency that requires hospitalization. Otherwise healthy patient presenting with constellation of symptoms likely representing abscess formation post heroin use as characterized by history, physical exam findings, lab findings. Urine negative.. Abscess Incision and Drainage with irrigation by me: Location: Right forearm Anesthesia: Local 1% Lidocaine Technique: Irrigated. Disrupted loculations w/ instrumentation Packing: Iodoform Complications: Neurovascularly intact post procedure 48 hour wound check. Patient verbalizes understanding of instructions to return in 2 days to emergency department. Patient verbalizes understanding of instructions not to insert any foreign objects into abscess pocket. Patient reassessment: no respiratory distress, otherwise relatively well appearing and nontoxic. Patient with significant decrease in pain, lidocaine still working. Disposition given. Patient will receive IM or ceftriaxone before discharge due to possible noncompliance of outpatient antibiotic use. Patient will receive 1 more dose of tramadol prior to discharge. prescriptions given for cephalexin and Bactrim. Patient educated on diagnoses, prescriptions, follow-up care, return precautions. Strict return precautions given for worsening condition; questions answered discharge. Disposition for discharge with followup in 2 days with PCP/clinic; or ER. Departure Diagnosis: Primary Impression: Heroin abuse Additional Impression: Acute abscess Condition: Stable Patient Instructions: Abscess Drainage Referrals: [facility] YOU HAVE RECEIVED A MEDICAL SCREENING EXAM AND THE RESULTS INDICATE THAT YOU DO NOT HAVE A CONDITION THAT REQUIRES URGENT TREATMENT IN THE EMERGENCY DEPARTMENT. FURTHER EVALUATION AND TREATMENT OF YOUR CONDITION CAN WAIT UNTIL YOU ARE SEEN IN YOUR DOCTORS OFFICE WITHIN THE NEXT 1-2 DAYS. IT IS YOUR RESPONSIBILITY TO MAKE AN APPOINTMENT FOR FOLOW-UP CARE. IF YOU HAVE A PRIMARY DOCTOR --you should call your primary doctor and schedule an appointment IF YOU DO NOT HAVE A PRIMARY DOCTOR YOU CAN CALL OUR PHYSICIAN REFERRAL HOTLINE AT IF YOU CAN NOT AFFORD TO SEE A PHYSICIAN YOU CAN CHOSE FROM THE FOLLOWING [facility] [address] [facility]. [facility] [address] [facility]. [facility] [address] [facility] [facility] [address] [facility] [address] [facility]. [facility]. [address] [facility]. [facility] YOU HAVE RECEIVED A MEDICAL SCREENING EXAM AND THE RESULTS INDICATE THAT YOU DO NOT HAVE A CONDITION THAT REQUIRES URGENT TREATMENT IN THE EMERGENCY DEPARTMENT. FURTHER EVALUATION AND TREATMENT OF YOUR CONDITION CAN WAIT UNTIL YOU ARE SEEN IN YOUR DOCTORS OFFICE WITHIN THE NEXT 1-2 DAYS. IT IS YOUR RESPONSIBILITY TO MAKE AN APPOINTMENT FOR FOLOW-UP CARE. IF YOU HAVE A PRIMARY DOCTOR --you should call your primary doctor and schedule and appointment IF YOU DO NOT HAVE A PRIMARY DOCTOR YOU CAN CALL OUR PHYSICIAN REFERRAL HOTLINE AT . IF YOU CAN NOT AFFORD TO SEE A PHYSICIAN YOU CAN CHOSE FROM THE FOLLOWING [facility] INSTITUTIONS: [facility] [address] [place] [address] [facility] [address] [place] [address] [facility] + [facility] [address] [place] [address] Additional Instructions: Thank you very much for allowing us to participate in your care. Your health and safety is our top priority at [facility]. It is important to read all discharge instructions and education provided in your discharge packet. *You must return in 48 hours for wound recheck and to remove packing.* Call your primary care doctor TOMORROW for an appointment during the next 2-4 days and bring all the information and medications prescribed. Have prescriptions filled and follow precisely the directions on the label. If the symptoms get worse and your provider is unavailable, return to the Emergency Department immediately. JAMIE LU NP September 18, 2018 17:24
== END 2018-09-18 04:17 | disposition home or self-care (01) ==
LOC: FTE 20:52
DX: L02.413 Cutaneous abscess of right upper limb (principal); F11.10 Opioid abuse, uncomplicated; F17.210 Nicotine dependence, cigarettes, uncomplicated; J45.909 Unspecified asthma, uncomplicated
CPT/HCPCS: 10060; 81025; 96372; J0696; J1885; Z7502; Z7610

== ENCOUNTER 2018-10-21 05:38 | Emergency (ER) | payer SELFPAY | END 2018-10-21 06:55 | disposition left against medical advice (07) | LOC: E/R 05:38 | DX: Z53.21 Procedure and treatment not carried out due to patient leaving prior to being seen by health care provider (principal) ==